=== PATIENT | male | born 1990 | race African-American/Black ===

== ENCOUNTER 2020-01-07 01:56 | Emergency (ER) | payer MEDICAID ==
[~2020-01-07] VITALS: Ht 175.3 cm; Wt 187.0 kg
[2020-01-07 01:59] VITALS: BP 175/116
[2020-01-07] MEDS ORDERED: TRAMADOL 50MG TABLET PO ONE (03:00)
[2020-01-07] MEDS ORDERED: AMOXICILLIN/POTASSIUM CLAVULANATE 875/125MG TAB PO ONE (03:00)
== END 2020-01-07 03:16 | disposition home or self-care (01) ==
LOC: ER 02:23
DX: R68.84 Jaw pain (principal); J45.909 Unspecified asthma, uncomplicated; I10 Essential (primary) hypertension
CPT/HCPCS: 99283